=== PATIENT | female | born 1985 | race Caucasian/White ===

== ENCOUNTER 2016-12-06 23:29 | Emergency (ER) | payer MEDICARE, MEDICAID ==
[~2016-12-06] VITALS: Ht 165.1 cm; Wt 74.8 kg
--- NOTE | 2016-12-07 00:02 | PHYS DOC ---
Past Medical History Past Medical History: No Pertinent History Additional Past Medical Histor: Denies Additional Past Surgical Histo: Cervical surgery 1 year ago that patient does not know what for Additional Information: 4 cigs per day Alcohol Use: None Drug Use: None Adult General Chief Complaint Chief Complaint: INSECT BITE HPI HPI Patient is a 31 year old female who presents with complaint of a boil to the right arm. The patient states that she has had it for approximately 1 week. The patient is currently a resident at [facility]. Patient has history of schizoaffective disorder. Patient was started on doxycycline on December 01, 2016 but did not have any improvement in symptoms. Per alf report, the patient was going to be switched to Cipro today. Due to worsening swelling however, the patient was transferred to the emergency department for evaluation. Patient states that she is having significant pain to her right upper arm. Patient denies any other symptoms at this time. Review of Systems Review of Systems Constitutional: Denies fever or chills [] Eyes: Denies change in visual acuity, redness, or eye pain [] HENT: Denies nasal congestion or sore throat [] Respiratory: Denies cough or shortness of breath [] Cardiovascular: Denies chest pain or edema [] GI: Denies abdominal pain, nausea, vomiting, bloody stools or diarrhea [] : Denies dysuria or hematuria [] Musculoskeletal: Denies back pain or joint pain [] Integument: Right arm swelling and redness [] Neurologic: Denies headache, focal weakness or sensory changes [] Current Medications Current Medications Current Medications Medications (Trade) Dose Ordered Sig/Elvira Start Time Stop Time Status Last Admin Dose Admin Diphtheria/ Tetanus/Acell Pertussis (Boostrix) 0.5 ml ONCE ONCE 12/07/16 00:45 12/07/16 00:46 UNV Lidocaine/ Epinephrine (Xylocaine 1%-Epi 1:100,000) 20 ml 1X ONCE 12/07/16 00:15 12/07/16 00:17 DC Trimethoprim/ Sulfamethoxazole (Bactrim Ds) 1 tab 1X ONCE 12/07/16 00:45 12/07/16 00:46 UNV Allergies Allergies Allergies Coded Allergies Type Severity Reaction Last Updated Verified Penicillins Allergy Severe Facial swelling 12/06/16 Yes Physical Exam Physical Exam Constitutional: Alert, afebrile, no acute distress. [] HENT: Normocephalic, atraumatic, bilateral external ears normal, oropharynx moist, no oral exudates, nose normal. [] Eyes: PERRLA, EOMI, conjunctiva normal, no discharge. [] Neck: Normal range of motion, no tenderness, supple, no stridor. [] Cardiovascular:Heart rate regular rhythm, no murmur [] Lungs & Thorax: Bilateral breath sounds clear to auscultation [] Abdomen: Bowel sounds normal, soft, no tenderness, no masses, no pulsatile masses. [] Skin: Warm, dry, 3-1/2 cm tender fluctuant lesion on right anterior upper arm with surrounding erythema and induration extending 3 cm past the lesion, no active drainage. [] Back: No tenderness, no CVA tenderness. [] Extremities: No tenderness, no cyanosis, no clubbing, ROM intact, no edema. [] Neurologic: Alert and oriented X 3, normal motor function, normal sensory function, no focal deficits noted. [] Current Patient Data Vital Signs Vital Signs Date Time Temp Pulse Resp B/P (MAP) Pulse Ox O2 Delivery O2 Flow Rate FiO2 12/06/16 23:36 98.6 77 18 99/56 (70) 95 Room Air 98.6 EKG EKG Not performed [] Radiology/Procedures Radiology/Procedures Indication: Right upper arm abscess Procedure: The patient was positioned appropriately. Local anesthesia was achieved with injection of lidocaine 1% with epinephrine. An incision was then made over the apex of the lesion and 7 mL of yellow purulent material was expressed. The drainage cavity was packed with sterile gauze. The patients tetanus status updated as needed. The patient tolerated the procedure well. Complications: none.[] Course & Med Decision Making Course & Med Decision Making Pertinent Labs and Imaging studies reviewed. (See chart for details) Patient's abscess was incised and drained as outlined in the procedure note. Patient started on Bactrim in the emergency department. The patient was recommended to have follow-up in 2-3 days for reevaluation and replacement of packing in the wound. Advised return emergency department for any worsening symptoms. Patient voiced understanding and in agreement with treatment plan. Dragon Disclaimer Dragon Disclaimer This electronic medical record was generated, in whole or in part, using a voice recognition dictation system. Departure Departure Impression: Primary Impression: Abscess Disposition: 01 HOME, SELF-CARE Condition: IMPROVED Patient Instructions: Abscess, Care After, Incision and Drainage Additional Instructions: Follow-up in 2-3 days with your doctor for reevaluation and replacement of wound packing. Discontinue use of Cipro and started on Bactrim DS as prescribed. Return to the emergency department for any worsening symptoms. Scripts Sulfamethoxazole/Trimethoprim (BACTRIM DS TABLET) 1 Each Tablet 1 TAB PO BID, #20 TAB Prov: SONIA BUSH MD 12/07/16 SONIA BUSH MD Dec 07, 2016 00:02
[2016-12-07] MEDS ORDERED: LIDOCAINE 1%/EPI 1:100,000 20 ML VIAL. INJ ONE (00:15)
[2016-12-07] MEDS ORDERED: SULF1TAB24 PO (00:44)
[2016-12-07] MEDS ORDERED: ACETAMINOPHEN 325 MG TABLET. PO ONE (01:00)
[2016-12-07] MEDS ORDERED: SMZ/TMP 800/160MG TABLET. PO ONE (01:00)
[2016-12-07] MEDS ORDERED: DIPHTH,PERTUSS(ACELL),TET TOX 0.5 ML DISP.SYRIN. VAX IM ONE (01:00)
[2016-12-07 01:32] VITALS: BP 103/66
== END 2016-12-07 01:35 | disposition home or self-care (01) ==
LOC: ER 23:29
DX: L02.413 Cutaneous abscess of right upper limb (principal); F25.9 Schizoaffective disorder, unspecified; F17.210 Nicotine dependence, cigarettes, uncomplicated; Z88.0 Allergy status to penicillin
CPT/HCPCS: 10060; 90471; 90715; 99283-25